=== PATIENT | female | born 2000 | race Caucasian/White ===

== ENCOUNTER 2019-10-03 23:21 | Emergency (ER) | payer SELFPAY ==
[~2019-10-03] VITALS: Ht 167.6 cm; Wt 68.7 kg
[2019-10-03 23:27] VITALS: BP 128/83
[2019-10-03] MEDS ORDERED: CEPH500C5 PO (23:46)
== END 2019-10-04 00:13 | disposition home or self-care (01) ==
LOC: ER 23:23 → EDBD 23:23 → ER 10-04 00:13
DX: L03.115 Cellulitis of right lower limb (principal); M79.10 Myalgia, unspecified site; Z79.2 Long term (current) use of antibiotics
CPT/HCPCS: 99283